=== PATIENT | female | born 1955 | race Caucasian/White ===

== ENCOUNTER 2018-07-24 18:01 | Inpatient (IN) | payer BC ==
[~2018-07-24] VITALS: Ht 154.9 cm; Wt 67.1 kg
[~2018-07-24 18:01] MED LIST: BORT3.5V IV; CYCL50TA PO; DEXA4TAB2 PO; LEVO750T21 PO; METR500T PO
--- NOTE | 2018-07-24 18:01 | NUR ---
PT BIB C/O LUQ ABD PAIN R/T BACK, +NAUSEA, VOMIT X1, STARTED 2HRS AGO. AAOX4, RESPIRATIONS EVEN AND UNLABORED, NAD, PT ON MONITOR, VSS, PENDING MD SEE
[2018-07-24] MEDS ORDERED: ONDANSETRON HCL/PF 4 MG/2 ML VIAL ONE (18:34)
--- NOTE | 2018-07-24 18:35 | NUR ---
ZOFRAN 4MG IVP PER DR LOWE VERBAL ORDER.
[2018-07-24] MEDS ORDERED: MORPHINE SULFATE INJ 4 MG/ML DISP.SYRIN ONE ×2 (18:38→20:04)
[2018-07-24 18:48] LABS: BASOPHILS # (AUTO) 0.1 /CMM (0.0-0.2); BASOPHILS % (AUTO) 0.3 % (0.0-2.0); HEMATOCRIT 38 % (33-45); HEMOGLOBIN 12.3 g/dL (11.5-14.8); LYMPHOCYTES # (AUTO) 3.9 /CMM (0.8-4.8); LYMPHOCYTES % (AUTO) 18.2 % (20.0-44.0); MEAN CORPUSCULAR HGB CONC 32 g/dl (31.0-36.0); MEAN CORPUSCULAR VOLUME 92 fL (82-100); MONOCYTES % (AUTO) 9.5 % (2.0-12.0); NEUTROPHILS # (AUTO) 15.4 /CMM (1.8-8.9); PLATELET COUNT (AUTO) 180 /CMM (150-450); RED BLOOD CELL COUNT(AUTO) 4.13 MIL/uL (4.0-5.2); WHITE BLOOD COUNT (AUTO) 21.4 K/uL (4.3-11.0)
[2018-07-24] MEDS ORDERED: ONDANSETRON HCL/PF 4 MG/2 ML VIAL IVP ONE (19:00)
[2018-07-24] MEDS ORDERED: MORPHINE SULFATE INJ 2 MG/ML DISP.SYRIN IV ONE ×2 (19:00→20:30)
[2018-07-24] MEDS ORDERED: IV NS 0.9% 1,000 ML BAG IV ONE (19:00)
[2018-07-24 19:02] LABS: ALANINE AMINOTRANSFERASE 35 U/L (12-78); ALBUMIN 3.8 g/dL (3.4-5.0); ALKALINE PHOSPHATASE 82 U/L (46-116); ASPARTATE AMINOTRANSFERASE 34 U/L (15-37); BILIRUBIN,DIRECT 0.1 mg/dL (0.0-0.2); BILIRUBIN,TOTAL 0.5 mg/dL (0.2-1.0); CALCIUM, SERUM 9.4 mg/dL (8.5-10.1); CARBON DIOXIDE 21 mmol/L (21-32); CHLORIDE 96 mmol/L (98-107); CREATININE 7.2 mg/dL (0.6-1.3); GLUCOSE 139 mg/dL (74-106); LIPASE 222 U/L (73-393); POTASSIUM 5.6 mmol/L (3.5-5.1); SODIUM SERUM 132 mmol/L (136-145); TOTAL PROTEIN, SERUM 8.4 g/dL (6.4-8.2); UREA NITROGEN, BLOOD 59 mg/dL (7-18)
[2018-07-24 19:41] LABS: APPEARANCE,URINE Clear (CLEAR); BILIRUBIN,URINE Negative (NEGATIVE); BLOOD, URINE Small Ery/uL (NEGATIVE); COLOR,URINE Yellow (YELLOW); KETONES,URINE 15 (NEGATIVE); LEUKOCYTE ESTERASE ,URINE Small (NEGATIVE); NITRITE, URINE Negative (NEGATIVE); PROTEIN,URINE >=300 mg/dl (NEGATIVE); UGLUCOSE 100 MG/DL mg/dL (NEGATIVE); UROBILINOGEN,URINE 0.2 EU/dL (0.2)
[2018-07-24 20:26] LABS: BACTERIA,URINE Few /HPF (None Seen); SQUAMOUS EPITHELIAL CELL,UR Few /HPF (None Seen)
[2018-07-24] MEDS ORDERED: CEFTRIAXONE 1 G in IV D5W 50 ML IV ONE (20:30)
[2018-07-24] MEDS ORDERED: AZITHROMYCIN 500 MG in IV D5W 250 ML IV ONE (20:30)
[2018-07-24] MEDS ORDERED: ACETAMINOPHEN ES 500 MG TABLET ONE (20:30)
[2018-07-24] MEDS ORDERED: AZITHROMYCIN 500 MG VIAL ONE (20:30)
[2018-07-24] MEDS ORDERED: ACETAMINOPHEN ES 500 MG TABLET PO ONE (20:30)
[2018-07-24] MEDS ORDERED: CEFTRIAXONE 1GM BAG (ER ONLY) 50 ML IV ONE (20:30)
[2018-07-24] MEDS ORDERED: SODIUM BICARBONATE SYR 50 MEQ/50 ML DISP.SYRIN IV ONE (21:00)
[2018-07-24] MEDS ORDERED: SODIUM BICARBONATE SYR 50 MEQ/50 ML DISP.SYRIN ONE (21:11)
--- NOTE | 2018-07-24 21:18 | NUR ---
BED ASSIGNMENT 322-1
[2018-07-24] MEDS ORDERED: ALBUTEROL FS 2.5 MG/0.5 ML VIAL.NEB NEB PRN (22:00)
[2018-07-24] MEDS ORDERED: ONDANSETRON HCL/PF 4 MG/2 ML VIAL IVP PRN (22:00)
[2018-07-24] MEDS ORDERED: ACETAMINOPHEN 650 MG/SUPP.RECT RC PRN (22:00)
[2018-07-24] MEDS ORDERED: IPRATROPIUM BROMIDE 14 GM INHALER (or 12.9 GM) IH PRN (22:00)
[2018-07-24] MEDS ORDERED: SEVE800T8 PO (22:03)
[2018-07-24] MEDS ORDERED: CARV3.122 PO (22:03)
[2018-07-24] MEDS ORDERED: OMEP40CA37 PO (22:03)
--- NOTE | 2018-07-24 22:15 | NUR ---
report given to ke mcarthurdry kiln burner nurse for martha
--- NOTE | 2018-07-24 22:40 | NUR ---
RN NOTES ADMITTED A 62 YEARS OLD FEMALE PT FROM ER WITH PRIMARY DIAGNOSIS OF PNA AND UTI UNDER GUSTAVO HAND SHOE CUTTER. PATIENT IS ALERT AND ORIENTED X4, AT ROOM AIR AND TOLERATED WELL. DENIES NAUSEA AND VOMITING AT THIS TIME. PAIN AT TOLERABLE LEVEL 5/10. IV ACCESS ON RIGHT HAND PATENT AND INTACT. SKIN ASSESSMENT DONE, SKIN CLEAR AND INTACT. PT IS AMBULATORY WITH STEADY GAIT. PLAN OF CARE DISCUSSED WITH THE PATIENT AND VERBALIZED UNDERSTANDING. ALL NEEDS ATTENDED. WILL CONTINUE TO MONITOR PATIENT.
[2018-07-24] MEDS ORDERED: VANCOMYCIN 1 GM in IV D5W 250ml IV ONE (23:00)
[2018-07-24] MEDS ORDERED: PIPERACILLIN /TAZOBACTAM 2.25 G VIAL IV ONE (23:12)
[2018-07-24] MEDS ORDERED: VANCOMYCIN 1 GM VIAL ONE (23:15)
[2018-07-25] VITALS: BP 109/68
[2018-07-25] MEDS ORDERED: PIPERACILLIN /TAZOBACTAM 2.25 G in IV D5W 50 ML IV SCH ×2
[2018-07-25] MEDS: HYDROCODONE/APAP 5/325MG 1 EACH TABLET PO PRN ×2 (00:49→22:38)
--- NOTE | 2018-07-25 00:49 | NUR ---
RN NOTES PATIENT COMPLAINS OF LEFT FLANK PAIN 02/18, NORCO 5/325 MG TAB GIVEN PO. WILL CONTINUE TO MONITOR PT.
[2018-07-25 04:00] VITALS: BP 108/62
[2018-07-25] MEDS: ACETAMINOPHEN 325 MG TABLET PO PRN ×3 (05:42→20:11)
--- NOTE | 2018-07-25 05:42 | NUR ---
RN NOTES PATIENT SLEPT ON AND OFF OVERNIGHT. VITAL SIGNS STABLE, AFEBRILE. VERBALIZING NASAL CONGESTION, GUSTAVO TRICHOLOGIST AWARE , INHALER ORDERED. KEPT PAIN AT TOLERABLE LEVEL WITH CURRENT REGIMEN. DENIES NAUSEA AND VOMITING. PLACED PT ON NPO AFTER MIDNIGHT PRIOR TO BE SEEN BY QUANTITATIVE CONSULTANT THIS AM. ALL NEEDS ATTENDED. WILL CONTINUE TO MONITOR PT.
[2018-07-25 06:30] LABS: BASOPHILS % (AUTO) 0.2 % (0.0-2.0); EOSINOPHILS % (AUTO) 0.2 % (0.0-6.0); HEMATOCRIT 31 % (33-45); HEMOGLOBIN 10.3 g/dL (11.5-14.8); LYMPHOCYTES # (AUTO) 2.9 /CMM (0.8-4.8); LYMPHOCYTES % (AUTO) 21.3 % (20.0-44.0); MEAN CORPUSCULAR HGB CONC 33 g/dl (31.0-36.0); MEAN CORPUSCULAR VOLUME 90 fL (82-100); MONOCYTES # (AUTO) 1.4 /CMM (0.1-1.30); MONOCYTES % (AUTO) 10.3 % (2.0-12.0); NEUTROPHILS # (AUTO) 9.3 /CMM (1.8-8.9); PLATELET COUNT (AUTO) 141 /CMM (150-450); RED BLOOD CELL COUNT(AUTO) 3.45 MIL/uL (4.0-5.2); WHITE BLOOD COUNT (AUTO) 13.6 K/uL (4.3-11.0)
[2018-07-25 06:47] LABS: CALCIUM, SERUM 8.7 mg/dL (8.5-10.1); CREATININE 7.2 mg/dL (0.6-1.3); MAGNESIUM 2.3 mg/dL (1.8-2.4); PHOSPHORUS 5.7 mg/dL (2.5-4.9); POTASSIUM 4.7 mmol/L (3.5-5.1)
[2018-07-25 07:00] LABS: THYROID STIMULATING HORMONE 3.319 uIU/mL (0.358-3.74)
--- NOTE | 2018-07-25 07:20 | NUR ---
MS/RN OPENING NOTE THE PATIENT IS RECEIVED IN BED. ALERT AND ORIENTED X4. ABLE TO MAKE NEEDS KNOWN VERBALLY. IN ROOM AIR AND DENIES SOB. RESPIRATION REGULAR AND UNLABORED. COMPLAINS OF LEFT LOWER LATERAL CHEST PAIN 4/10 AND DESCRIBED PAIN SHARP AND "MUSCLE PAIN." THE PATIENT REFUSES PAIN MEDICATION AT THIS TIME BUT AGREED FOR A WARM BLANKET TO PUT CLOSE TO THE AREA TO RELIEVE THE PAIN. WILL CONTINUE TO MONITOR. RIGHT HAND G 20 PATENT AND SALINE LOCKED. BED LOW AND LOCKED. SIDE RAILS UP X2. CALL LIGHT WITHIN REACH. WILL CONTINUE TO MONITOR.
[2018-07-25] MEDS ORDERED: FEE PK DOSING 1 MIN EA MC ONE (07:56)
[2018-07-25 08:00] VITALS: BP 104/55
[2018-07-25] MEDS ORDERED: VANCOMYCIN 500 MG in IV D5W 100 ML IV PRN (08:00)
[2018-07-25] MEDS: SEVELAMER CARBONATE 800 MG TABLET PO SCH ×3 (08:52→17:21)
[2018-07-25] MEDS: PANTOPRAZOLE 40 MG VIAL IV SCH (08:52)
[2018-07-25] MEDS ORDERED: Medication Not On Formulary EA (Omeprazole 40 MG) PO SCH (09:00)
[2018-07-25] MEDS: CARVEDILOL 3.125 MG TABLET PO SCH ×2 (09:00→17:00)
[2018-07-25] MEDS: PIPERACILLIN /TAZOBACTAM 2.25 G in IV D5W 50 ML IV SCH ×2 (09:05→17:20)
--- NOTE | 2018-07-25 09:06 | NUR ---
MS/RN NOTE COREG 3.125 MG DUE AT 0900 NOT ADMINISTERED DUE TO SBP<110.
[2018-07-25] MEDS ORDERED: IPRATROPIUM NEB FS 0.5 MG/2.5 ML AMPUL.NEB NEB PRN (09:30)
[2018-07-25] MEDS ORDERED: SALINE NASAL SPRAY 0.65% 1 BOTTLE BOTTLE NS PRN ×2 (13:00)
--- NOTE | 2018-07-25 13:01 | NUR ---
MS/RN NOTE THE PATIENT COMPLIANT OF NASAL CONGESTION AND DRYNESS. DR SCHWARTZ IS MADE AWARE. RECEIVED SALINE NASAL SPRAY ORDER FROM DR SCHWARTZ. THE ORDER IS READ BACK, VERIFIED. NOTED AND CARRIED OUT.
[2018-07-25] MEDS: MAGNESIUM OXIDE 400 MG TABLET PO SCH (13:06)
[2018-07-25 16:00] VITALS: BP 134/71
--- NOTE | 2018-07-25 17:24 | NUR ---
MS/RN NOTE THE PATIENT REFUSED TO TAKE COREG 3.125 MG DUE AT 1700. PATIENT BLOOD PRESSURE IS 134/71 AND PULSE 80.
--- NOTE | 2018-07-25 18:41 | NUR ---
MS/RN CLOSING NOTE THE PATIENT ALERT AND ORIENTED X4. DENIES PAIN AT THIS TIME. RESPIRATION REGULAR AND UNLABORED. DENIES SOB. PATIENT IN ROOM AIR AND SATURATION AT 97%. RIGHT HAND G 20 PATENT AND SALINE LOCKED. BED LOW AND LOCKED. SIDE RAILS UP X2. CALL LIGHT WITHIN REACH. WILL ENDORSE TO BILINGUAL SPANISH INBOUND SALES.
--- NOTE | 2018-07-25 19:12 | NUR ---
Met with patient,she is alert and pleasant.She lives locally with her spouse. She is ambulatory and independent with adl's. She is on hemodialysis 2x/week [facility] [place] [phone] 2x/week at 7:45am.She is also on kidney transplant list at [facility]. She plan to return home once discharge. Addendum: 07/25/18 at 2 by JANNET MOTLEY RN Amended: Links added.
[2018-07-25 20:00] VITALS: BP 141/71
[2018-07-25] MEDS: CEFEPIME 1 GM in IV D5W 50 ML IV SCH (20:22)
[2018-07-25] MEDS: AZITHROMYCIN 250 MG TABLET PO SCH (20:33)
--- NOTE | 2018-07-25 20:43 | NUR ---
URINE FOR THE ORDERED TEST COLLECTED AND PLACED IN THE REFRIGERATOR,AZITHROMYCIN DOSE PO GIVEN AND MAXIPINE IV INFUSED INITIAL DOSE,
[2018-07-26] MEDS: HYDROCODONE/APAP 5/325MG 1 EACH TABLET PO PRN ×2 (01:24→06:03)
--- NOTE | 2018-07-26 05:15 | NUR ---
PATIENT IS COMPLAINING OF PAIN TO THE LEFT UPPER BACK WHEN LYING DOWN BUT NOT WHEN SITTING OR STANDING.NOTED BLOOD TINGE SPUTUN WHEN COUGHING, DR SANDOVAL NEEDS TO BE NOTIFIED. Addendum: 07/26/18 at 0517 by PETE FLYNN RN Amended: Links added.
[2018-07-26 05:18] VITALS: BP 142/76
--- NOTE | 2018-07-26 05:23 | NUR ---
PATIENT NOTED TO BE COUGHING PRODUCTIVELY AND NOTED BLOOD TINGE SPUTUM. WITH COMPLAINTS OF PAIN TO THE LEFT UPPER BACK WHEN LYING DOWN AND NOT WHEN SITTING OR STANDING . Addendum: 07/26/18 at 0525 by PETE FLYNN RN Amended: Links added.
--- NOTE | 2018-07-26 05:47 | NUR ---
dR Ford CALLED BNACK AND WITH ORDERS AND CARRIED OUT
--- NOTE | 2018-07-26 06:02 | NUR ---
RN NOTES: ASSIGNED RN NOTIFIED MD REGARDING PATIENT'S COMPLAIN, MD CALLED BACK WITH THE FOLLOWING ORDERS, RESPIRATORY CULTURES, AFB SPUTUM R/O TB, INFORMED RN PETE TO CALL INFECTION CONTROL PER PROTOCOL EXT [phone], ROBITUSSIN DM 5ML Q6HRS PRN FOR COUGH
[2018-07-26] MEDS: GUAIFENESIN/D-METHORPHAN HB 5 ML UDC PO PRN ×2 (06:54→20:40)
--- NOTE | 2018-07-26 07:00 | NUR ---
PATIENT WITH ORDERS SPUTUM AFB FOR COLLECTION TO R/O TB, INFECTION DISEASE CONTROL WILL BE NOTIFIED,NOT IN YET, WILL NOTIFY WHEN OFFICE OPENS, RT INFORMED THAT THE PATIENT HAS PLEURITIC PAIN AND NEEDS A BREATHING TREATMENT , WILL COME TO GIVE BREATHING TREATMENT
--- NOTE | 2018-07-26 07:45 | NUR ---
MS RN NOTES PATIENT RECEIVED RESTING INSIDE ROOM. AWAKE, ALERT AND ORIENTED X 4, VERBALLY RESPONSIVE AND RESPONDS TO VERBAL AND TACTILE STIMULI. BREATHING EVEN AND UNLABORED. DENIES ANY PAIN OR DISCOMFORT. NO CHANGES IN LOC NOTED. PATIENT CALM AND RELAXED. RECEIVED ENDORSEMENT FROM PREVIOUS SHIFT THAT PATIENT WITH EPISODE OF HAVING BLOOD-TINGED SPUTUM. NO SPECIMEN COLLECTED YET AT THIS TIME, WILL COLLECT AND SEND TO LAB FOR AFB. PATIENT MADE AWARE AND VERBALIZED UNDERSTANDING. TO PLACE PATIENT ON ISOLATION PRECAUTION FOR SAFETY. PATIENT MADE AWARE AND VERBALIZED UNDERSTANDING BUT REFUSES TO WEAR MASK DURING TRANSFER, VERBALIZES THAT SHE IS UNCOMFORTABLE AND DOES NOT WANT TO WEAR MASK. RISKS AND BENEFITS EXPLAINED BUT TO NO AVAIL, PATIENT STRONGLY REFUSED TO WEAR MASK. WILL INITIATE ISOLATION PRECAUTION. PLACED CALL TO INFECTION CONTROL AND LEFT MESSAGE, AWAITING FOR CALL BACK FOR CONFIRMATION. WILL CONTINUE TO MONITOR
[2018-07-26 07:47] LABS: BASOPHILS % (AUTO) 0.2 % (0.0-2.0); EOSINOPHILS % (AUTO) 1.6 % (0.0-6.0); HEMATOCRIT 30 % (33-45); HEMOGLOBIN 10.2 g/dL (11.5-14.8); LYMPHOCYTES # (AUTO) 1.3 /CMM (0.8-4.8); LYMPHOCYTES % (AUTO) 15.1 % (20.0-44.0); MEAN CORPUSCULAR HGB CONC 34 g/dl (31.0-36.0); MEAN CORPUSCULAR VOLUME 90 fL (82-100); MONOCYTES # (AUTO) 1.1 /CMM (0.1-1.30); NEUTROPHILS # (AUTO) 6.2 /CMM (1.8-8.9); NEUTROPHILS % (AUTO) 71.1 % (43.0-81.0); PLATELET COUNT (AUTO) 147 /CMM (150-450); RED BLOOD CELL COUNT(AUTO) 3.31 MIL/uL (4.0-5.2); WHITE BLOOD COUNT (AUTO) 8.8 K/uL (4.3-11.0)
[2018-07-26 08:00] VITALS: BP 116/60
[2018-07-26 08:01] LABS: CALCIUM, SERUM 8.8 mg/dL (8.5-10.1); MAGNESIUM 2.4 mg/dL (1.8-2.4); PHOSPHORUS 6.6 mg/dL (2.5-4.9); POTASSIUM 4.4 mmol/L (3.5-5.1)
[2018-07-26 08:02] LABS: CREATININE 7.8 mg/dL (0.6-1.3)
[2018-07-26 08:12] LABS: IRON, SERUM 71 ug/dl (50-175); TOTAL IRON BINDING CAPACITY 169 ug/dl (250-450)
[2018-07-26] MEDS: PANTOPRAZOLE 40 MG VIAL IV SCH (08:35)
[2018-07-26] MEDS: MAGNESIUM OXIDE 400 MG TABLET PO SCH (08:35)
[2018-07-26] MEDS: SEVELAMER CARBONATE 800 MG TABLET PO SCH ×3 (08:35→17:49)
[2018-07-26] MEDS: CARVEDILOL 3.125 MG TABLET PO SCH ×2 (09:00→17:00)
[2018-07-26 09:13] LABS: FERRITIN 2387 ng/mL (8-388)
[2018-07-26] MEDS ORDERED: TRAMADOL HCL 50 MG TABLET PO PRN ×2 (14:30→21:00)
[2018-07-26 16:00] VITALS: BP 120/66
--- NOTE | 2018-07-26 17:30 | NUR ---
MS RN NOTES PATIENT S/P HD. 0 OUT PER PATIENT REQUEST, VERBALIZED THAT SHE ONLY WANTS A CLEANUP. PATIENT TOLERATED HD WELL. WILL CONTINUE TO MONITOR
--- NOTE | 2018-07-26 18:15 | NUR ---
MS RN NOTES PATIENT RESTING INSIDE ROOM. AWAKE, ALERT AND ORIENTED X 4, VERBALLY RESPONSIVE AND RESPONDS TO VERBAL AND TACTILE STIMULI. BREATHING EVEN AND UNLABORED. NO SOB OR ACUTE DISTRESS. DENIES ANY PAIN OR DISCOMFORT. PATIENT AFEBRILE, SKIN DRY AND WARM TO TOUCH. MAINTAINED ISOLATION PRECAUTIONS. WILL ENDORSE TO INCOMING SHIFT FOR ELLE. ALL NURSING NEEDS ATTENDED AND MET. PATIENT KEPT CLEAN, DRY AND COMFORTABLE. CALL LIGHT WITHIN EASY REACH
--- NOTE | 2018-07-26 19:38 | NUR ---
PATIENT RECIEVED IN THE ROOM ALERT AND ORIENTED, ON AIRBORNE ISOLATION THE PATIENT WAS ORDERED AFB X 3, 1 COLLECTED AND 2 MORE FOR COLLECTION
[2018-07-26 20:00] VITALS: BP 120/58
[2018-07-26] MEDS: CEFEPIME 1 GM in IV D5W 50 ML IV SCH (20:41)
[2018-07-26] MEDS: AZITHROMYCIN 250 MG TABLET PO SCH (20:50)
--- NOTE | 2018-07-27 06:37 | NUR ---
sputum x1 for afb collected as x1. sputum culture result pending result. patient is still on airborne precaution till the 3 afb result is in. infectious disease department is aware,
[2018-07-27 07:12] LABS: BASOPHILS % (AUTO) 0.3 % (0.0-2.0); EOSINOPHILS % (AUTO) 1.4 % (0.0-6.0); HEMATOCRIT 32 % (33-45); HEMOGLOBIN 10.6 g/dL (11.5-14.8); LYMPHOCYTES # (AUTO) 2.8 /CMM (0.8-4.8); LYMPHOCYTES % (AUTO) 35.4 % (20.0-44.0); MEAN CORPUSCULAR HGB CONC 33 g/dl (31.0-36.0); MEAN CORPUSCULAR VOLUME 89 fL (82-100); MONOCYTES # (AUTO) 1.1 /CMM (0.1-1.30); MONOCYTES % (AUTO) 13.5 % (2.0-12.0); NEUTROPHILS # (AUTO) 3.9 /CMM (1.8-8.9); NEUTROPHILS % (AUTO) 49.4 % (43.0-81.0); PLATELET COUNT (AUTO) 172 /CMM (150-450); RED BLOOD CELL COUNT(AUTO) 3.55 MIL/uL (4.0-5.2)
--- NOTE | 2018-07-27 07:29 | NUR ---
MS RN NOTES PATIENT RECEIVED RESTING INSIDE ROOM. AWAKE, ALERT AND ORIENTED X 4, VERBALLY RESPONSIVE AND RESPONDS TO VERBAL AND TACTILE STIMULI. BREATHING EVEN AND UNLABORED. DENIES ANY PAIN OR DISCOMFORT. NO CHANGES IN LOC NOTED. PATIENT CALM AND RELAXED. MAINTAINED ISOLATION PRECAUTIONS. WILL CONTINUE TO MONITOR. BED LOCKED AND IN LOW POSITION. BILATERAL UPPER SIDE RAILS UP AND LOCKED. CALL LIGHT WITHIN EASY REACH
[2018-07-27 07:36] LABS: CREATININE 6.1 mg/dL (0.6-1.3); MAGNESIUM 2.4 mg/dL (1.8-2.4); PHOSPHORUS 5.4 mg/dL (2.5-4.9); POTASSIUM 4.1 mmol/L (3.5-5.1)
[2018-07-27 08:00] VITALS: BP 135/69
[2018-07-27] MEDS: CARVEDILOL 3.125 MG TABLET PO SCH ×2 (08:32→17:11)
[2018-07-27] MEDS: SEVELAMER CARBONATE 800 MG TABLET PO SCH ×3 (08:32→17:11)
[2018-07-27] MEDS: PANTOPRAZOLE 40 MG VIAL IV SCH (08:32)
[2018-07-27] MEDS: MAGNESIUM OXIDE 400 MG TABLET PO SCH (08:32)
[2018-07-27 11:23] VITALS: BP 135/69
[2018-07-27 16:00] VITALS: BP 143/72
[2018-07-27] MEDS ORDERED: LEVO500T75 PO (17:03)
[2018-07-27 17:11] VITALS: BP 143/72
[2018-07-27] MEDS ORDERED: LEVOFLOXACIN (250MG) 250 MG TABLET PO SCH (18:00)
--- NOTE | 2018-07-27 18:00 | NUR ---
MS RN NOTES PATIENT SEEN AND EXAMINED BY ID AND DR. SCHWARTZ AND PER BOTH DISCIPLINES, PATIENT SHOULD NOT BE ON ISOLATION PRECAUTIONS NOR SHOULD HAVE AFB. NO EPISODE OF BLOOD IN SPUTUM NOTED DURING THIS SHIFT AND MD AWARE. PATIENT AFEBRILE, DENIES NIGHT SWEATS, DENIES FATIGUE. AFB DISCONTINUED BY MD. ORDER NOTED AND CARRIED OUT. PATIENT WITH ORDER FROM DR. SCHWARTZ TO DISCHARGE HOME. PATIENT MADE AWARE AND VERBALIZED UNDERSTANDING
--- NOTE | 2018-07-27 18:34 | NUR ---
MS RN NOTES PATIENT FOR DISCHARGE HOME TODAY. DISCHARGE INSTRUCTIONS AND EDUCATION GIVEN AND PATIENT VERBALIZED UNDERSTANDING. IV REMOVED WITH MINIMAL BLEEDING NOTED. ALL BELONGINGS COMPLETE ON DISCHARGE, NO REPORT OF MISSING INVENTORY. WRITTEN PRESCRIPTION FOR LEVAQUIN GIVEN TO PATIENT. PATIENT LEFT UNIT AT 1834 IN STABLE CONDITION. BREATHING EVEN AND UNLABORED. NO SOB OR ACUTE DISTRESS. NO SKIN BREAKDOWN NOTED ON DISCHARGE. PATIENT LEFT HOSPITAL PRE[facility]ES VIA PRIVATE CAR WITH . MD AWARE OF DISCHARGE.
== END 2018-07-27 18:30 | disposition home or self-care (01) | DRG 871 ==
LOC: ER 18:05 → TELE 21:51 → MED 07-25 09:31
PROVIDERS: ADMIT Registered Nurse; ATTEND Internal Medicine
PROC: 5A1D70Z Performance of Urinary Filtration, Intermittent, Less than 6 Hours Per Day (ICD-10-PCS; principal; 2018-07-26)
DX: A41.9 Sepsis, unspecified organism (principal); N18.6 End stage renal disease; J18.1 Lobar pneumonia, unspecified organism; J15.9 Unspecified bacterial pneumonia; E87.1 Hypo-osmolality and hyponatremia; N39.0 Urinary tract infection, site not specified; D68.59 Other primary thrombophilia; E46 Unspecified protein-calorie malnutrition; Z94.81 Bone marrow transplant status; E85.9 Amyloidosis, unspecified; Z94.84 Stem cells transplant status; I12.0 Hypertensive chronic kidney disease with stage 5 chronic kidney disease or end stage renal disease; B96.89 Other specified bacterial agents as the cause of diseases classified elsewhere; E87.5 Hyperkalemia; I10 Essential (primary) hypertension; K57.30 Diverticulosis of large intestine without perforation or abscess without bleeding; Z85.3 Personal history of malignant neoplasm of breast; E66.9 Obesity, unspecified; Z68.28 Body mass index [BMI] 28.0-28.9, adult; N20.0 Calculus of kidney; Z90.11 Acquired absence of right breast and nipple; Z90.49 Acquired absence of other specified parts of digestive tract; Z99.2 Dependence on renal dialysis; E78.5 Hyperlipidemia, unspecified; D64.9 Anemia, unspecified
CPT/HCPCS: 36415; 71045-TC; 80048-TC; 80061-TC; 80076-TC; 80202-TC; 81000-TC; 82728-TC; 83540-TC; 83605-TC; 83690-TC; 83735-TC; 84100-TC; 84443-TC; 84484-TC; 85025-TC; 87040-TC; 87070-TC; 87081-TC; 87086-TC; 87400; 90935-TC; 93307-TC; A4606; C9113; G0378; J0456; J0692; J0696; J2270; J2405; J2543; J3370; J3490; J7030; J7050; J7060; Z7610

== ENCOUNTER 2018-08-25 17:33 | Inpatient (IN) | payer BC ==
[~2018-08-25] VITALS: Ht 152.4 cm; Wt 64.0 kg
[~2018-08-25 17:33] MED LIST changes: -BORT3.5V IV; +CARV3.122 PO; -CYCL50TA PO; -DEXA4TAB2 PO; +LEVO500T75 PO; -LEVO750T21 PO; -METR500T PO; +OMEP40CA37 PO; +SEVE800T8 PO
--- NOTE | 2018-08-25 18:04 | NUR ---
C/O DIARRHEA x 3 DAYS [id number] x 10 TODAY, WATERY, +N/V x 3, FEVER LAST NIGHT, 100.1, TRAVELLED TO [place] LAST JUNE. HAS DIALYSIS, SHUNT ON LEFT UPPER ARM. PT IS AOX4, AMB, VSS, RR EVEN AND UNLABORED. SKIN INTACT, NO ACUTE DISTRESS NOTED. AT BEDSIDE. READY FOR EVAL.
--- NOTE | 2018-08-25 18:24 | NUR ---
XRAY AT BEDSIDE
--- NOTE | 2018-08-25 18:29 | NUR ---
SMOKING PIPE MOUNTER AT BEDSIDE
[2018-08-25] MEDS ORDERED: IV NS 0.9% 500 ML BAG IV ONE (18:30)
[2018-08-25 18:47] LABS: BASOPHILS % (AUTO) 0.2 % (0.0-2.0); HEMATOCRIT 32 % (33-45); HEMOGLOBIN 10.4 g/dL (11.5-14.8); LYMPHOCYTES % (AUTO) 4.8 % (20.0-44.0); MEAN CORPUSCULAR HGB CONC 33 g/dl (31.0-36.0); MEAN CORPUSCULAR VOLUME 89 fL (82-100); MONOCYTES % (AUTO) 9.7 % (2.0-12.0); NEUTROPHILS # (AUTO) 17.2 /CMM (1.8-8.9); NEUTROPHILS % (AUTO) 85.3 % (43.0-81.0); PLATELET COUNT (AUTO) 196 /CMM (150-450); RED BLOOD CELL COUNT(AUTO) 3.54 MIL/uL (4.0-5.2); WHITE BLOOD COUNT (AUTO) 20.1 K/uL (4.3-11.0)
[2018-08-25 18:58] LABS: ALBUMIN 3.5 g/dL (3.4-5.0); BILIRUBIN,DIRECT 0.1 mg/dL (0.0-0.2); BILIRUBIN,TOTAL 0.5 mg/dL (0.2-1.0); CALCIUM, SERUM 8.6 mg/dL (8.5-10.1); TOTAL PROTEIN, SERUM 7.8 g/dL (6.4-8.2)
[2018-08-25 19:00] LABS: CREATININE 8.3 mg/dL (0.6-1.3)
--- NOTE | 2018-08-25 19:18 | NUR ---
PT TAKEN TO CT VIA MAGDIEL
--- NOTE | 2018-08-25 19:28 | NUR ---
PT RETURNED FROM CT.
--- NOTE | 2018-08-25 19:49 | NUR ---
ATTEMPTED TO COLLECT URINE/STOOL SAMPLES, PT UNABLE TO PROVIDE. CHANNEL DEVELOPMENT DIRECTOR AWARE.
[2018-08-25 19:50] LABS: BAND % (MANUAL) 1 % (0.0-5.0); LYMPHOCYTES % (MANUAL) 4 % (16-48); MONOCYTES % (MANUAL) 4 % (0-11.0); NEUTROPHILS % (MANUAL) 91 (42-76)
--- NOTE | 2018-08-25 20:12 | NUR ---
Pt is assigned to med surg/iso rm#: [id number], DX: Colitis / Rule out C-Diff, and accepting MD: Dr Ribera
--- NOTE | 2018-08-25 20:14 | NUR ---
URINE/STOOL COLLECTED, SENT TO LAB
[2018-08-25 20:24] LABS: APPEARANCE,URINE Clear (CLEAR); BILIRUBIN,URINE Negative (NEGATIVE); BLOOD, URINE Moderate Ery/uL (NEGATIVE); COLOR,URINE Yellow (YELLOW); KETONES,URINE Trace (NEGATIVE); LEUKOCYTE ESTERASE ,URINE Negative (NEGATIVE); NITRITE, URINE Negative (NEGATIVE); PROTEIN,URINE >=300 mg/dl (NEGATIVE); UGLUCOSE Negative (NEGATIVE); UROBILINOGEN,URINE 0.2 EU/dL (0.2)
[2018-08-25] MEDS ORDERED: MAGNESIUM HYDROXIDE 30 ML UDC PO PRN (20:30)
[2018-08-25] MEDS ORDERED: HYDROCODONE/APAP 5/325MG 1 EACH TABLET PO PRN (20:30)
[2018-08-25] MEDS ORDERED: MAG HYDROX/AL HYDROX/SIMETH 30 ML UDC PO PRN (20:30)
[2018-08-25] MEDS ORDERED: ONDANSETRON HCL/PF 4 MG/2 ML VIAL ONE (20:38)
[2018-08-25] MEDS: ONDANSETRON HCL/PF 4 MG/2 ML VIAL IVP PRN (20:42)
[2018-08-25 20:50] VITALS: BP 132/67
--- NOTE | 2018-08-25 20:50 | NUR ---
RECEIVED REPORT FROM ER NURSE VASILIY. PATIENT ARRIVED ON UNIT AND RECEIVED IN STABLE CONDITION. AT BEDSIDE. PATIENT STILL NOTED WITH DIARRHEA. CONTACT ISOLATION IN PLACE. PRN TYLENOL 650MG FOR C/O ABDOMINAL PAIN. NO FURTHER EPISODE OF NV NOTED. PERIPHERAL LINE INTACT AND PATENT. ENCOURAGE USE OF CALL LIGHT FOR ASSISTANCE AND VERBALIZED GOOD UNDERSTANDING. WILL CONTINUE TO MONITOR.
--- NOTE | 2018-08-25 20:51 | NUR ---
REPORT GIVEN TO LUCIE PHIPPS FOR 329-T ISOLATION
--- NOTE | 2018-08-25 20:56 | NUR ---
PT TRANSFERRED TO FLOOR
[2018-08-25 21:11] LABS: BACTERIA,URINE Few /HPF (None Seen); SQUAMOUS EPITHELIAL CELL,UR Few /HPF (None Seen); WBC,URINE 0-2 /HPF (0-3)
[2018-08-25] MEDS: IV NS 0.9% 1,000 ML IV PRN (21:24)
[2018-08-25] MEDS: ACETAMINOPHEN 325 MG TABLET PO PRN (21:24)
[2018-08-26] MEDS: VANCOMYCIN HCL 125 MG/2.5 ML ORAL.SUSP PO SCH ×5 (00:07→23:55)
[2018-08-26] MEDS: ONDANSETRON HCL/PF 4 MG/2 ML VIAL IVP PRN (05:41)
--- NOTE | 2018-08-26 06:24 | NUR ---
MS RN NOTES PATIENT ASLEEP IN BED WITH NO DISTRESS NOTED. CALL LIGHT WITHIN REACH. PERIPHERAL LINE INTACT AND PATENT. ALL DUE MEDS GIVEN ORDERED WITH NO ASE NOTED. NO FURTHER C/O PAIN OR DISCOMFORT. CONTACT ISOLATION OBSERVED AND MAINTAINED AT ALL TIMES. ALL BELONGINGS KEPT NEAR BEDSIDE. BED IN LOW LOCK SETTING. WILL ENDORSE TO ONCOMING SHIFT.
[2018-08-26 07:21] LABS: BASOPHILS % (AUTO) 0.1 % (0.0-2.0); HEMATOCRIT 30 % (33-45); HEMOGLOBIN 10.2 g/dL (11.5-14.8); LYMPHOCYTES # (AUTO) 1.2 /CMM (0.8-4.8); MEAN CORPUSCULAR HGB CONC 34 g/dl (31.0-36.0); MEAN CORPUSCULAR VOLUME 88 fL (82-100); MONOCYTES # (AUTO) 1.9 /CMM (0.1-1.30); MONOCYTES % (AUTO) 9.7 % (2.0-12.0); NEUTROPHILS # (AUTO) 16.6 /CMM (1.8-8.9); NEUTROPHILS % (AUTO) 84.2 % (43.0-81.0); PLATELET COUNT (AUTO) 177 /CMM (150-450); RED BLOOD CELL COUNT(AUTO) 3.42 MIL/uL (4.0-5.2); WHITE BLOOD COUNT (AUTO) 19.7 K/uL (4.3-11.0)
--- NOTE | 2018-08-26 07:23 | NUR ---
MS RN OPENING NOTE RECEIVED PATIENT IN BED. SLEEPING, EASILY AROUSED WITH VERBAL STIMULI. ORIENTED X4. ON ROOM AIR, TOLERATING WELL. IN NO APPARENT DISTRESS OR DISCOMFORT AT THIS TIME. RESPIRATIONS EVEN AND UNLABORED. DENIES PAIN AND SOB. PATIENT IS ABLE TO COMMUNICATE NEEDS. ABLE TO AMBULATE INDEPENDENTLY. ISOLATION PRECAUTIONS OBSERVED AT THE DOOR. RIGHT HAND 20G IVC WITH FLUIDS RUNNING AT 75ML/HR. LEFT UPPER ARM SHUNT, BRUIT PRESENT. PATIENT KEPT CLEAN AND COMFORTABLE. ALL NEEDS ATTENDED, SAFETY MEASURES IN PLACE, BED IN LOW LOCKED POSITION, SIDE RAILS UP X2, CALL LIGHT WITHIN EASY REACH., WILL CONTINUE TO MONITOR.
[2018-08-26 07:27] LABS: CALCIUM, SERUM 8.4 mg/dL (8.5-10.1); PHOSPHORUS 5.5 mg/dL (2.5-4.9); POTASSIUM 4.1 mmol/L (3.5-5.1)
[2018-08-26 07:29] LABS: CREATININE 8.4 mg/dL (0.6-1.3)
[2018-08-26 07:39] LABS: THYROID STIMULATING HORMONE 1.967 uIU/mL (0.358-3.74)
[2018-08-26 07:41] LABS: BAND % (MANUAL) 1 % (0.0-5.0); LYMPHOCYTES % (MANUAL) 5 % (16-48); MONOCYTES % (MANUAL) 9 % (0-11.0); NEUTROPHILS % (MANUAL) 85 (42-76)
[2018-08-26 08:00] VITALS: BP 118/53
[2018-08-26] MEDS: SEVELAMER CARBONATE 0.8 GM POWD.PACK PO SCH ×3 (08:43→17:05)
[2018-08-26] MEDS: ACETAMINOPHEN 325 MG TABLET PO PRN ×2 (08:47→17:12)
--- NOTE | 2018-08-26 09:00 | NUR ---
PATIENT WITH FEVER OF 100.0. OFFERED ICE PACKS, PATIENT REFUSED. DECREASED ROOM TEMPERATURE AND ADMINISTERED TYLENOL 650MG PRN AT THIS TIME. WILL CONTINUE TO MONITOR.
--- NOTE | 2018-08-26 10:00 | NUR ---
PATIENT IS AFEBRILE AT THIS TIME. FEVER DECREASED TO 98.2. WILL CONTINUE TO MONITOR.
[2018-08-26 16:00] VITALS: BP 147/66
--- NOTE | 2018-08-26 18:25 | NUR ---
MS RN CLOSING NOTE PATIENT IN BED. ALERT ORIENTED X4. ON ROOM AIR, TOLERATING WELL. IN NO APPARENT DISTRESS OR DISCOMFORT AT THIS TIME. RESPIRATIONS EVEN AND UNLABORED. DENIES PAIN AND SOB. PATIENT IS ABLE TO COMMUNICATE NEEDS. ABLE TO AMBULATE INDEPENDENTLY. ISOLATION PRECAUTIONS OBSERVED AT THE DOOR. RIGHT HAND 20G IVC WITH FLUIDS RUNNING AT 75ML/HR. LEFT UPPER ARM SHUNT, BRUIT PRESENT. PATIENT CURRENTLY BEING DIALYZED. KEPT CLEAN AND COMFORTABLE. ALL NEEDS ATTENDED, SAFETY MEASURES IN PLACE, BED IN LOW LOCKED POSITION, SIDE RAILS UP X2, CALL LIGHT WITHIN EASY REACH. WILL ENDORSE TO PM NURSE FOR ELLE.
--- NOTE | 2018-08-26 18:45 | NUR ---
Patient is alert and pleasant.She lives locally with her spouse. She is ambulatory and independent with adl's. She is on hemodialysis 2x/week at [facility] [phone] 2x/week at 7:45am.She is also on kidney transplant list at [facility]. She plan to return home once discharge. Addendum: 08/26/18 at 1845 by JANNET MOTLEY RN Amended: Links added.
--- NOTE | 2018-08-26 19:08 | NUR ---
MS/RN OPENING NOTES RECEIVED PATIENT HAVING DIALYSIS AND AM RN GAVE REPORT,PATIETN ON CDIFF CONTACT ISOLATION, ALERT, ORIENTED, A, O X4, BRP AND ASSIST TO BATHROOM, ON BED JURADO, BEING MONITORED FOR STOOL, FEVER AND ANY CHANGES. WILL CONTINUE TO MONITOR, CALL LIGHTS WITHIN REACH, BED LOCKED WILL MONITOR.CALL LIGHTS WITHIN REACH, BED LOCKED.
[2018-08-26 20:00] VITALS: BP 142/84
--- NOTE | 2018-08-26 20:00 | NUR ---
MS/RN NOTES PATIENT S/P DIALYSIS HAD 500ML FLUID OUT REPORTED BY DIALYSIS NURSE, DAVYN REQUESTED FOR DINNER TRAY WARMED AND HAVING MODERATE APPETITE. DENIES PAIN BUT FEELING COLD ASKED FOR WARM BLANKET.
--- NOTE | 2018-08-27 00:30 | NUR ---
MS/RN NOTES PATIENT REPORTED ABLE TO GO TO BATHROOM WITH SUPERVISION AND REPORTED HAD BM FIVE TIMES DURING THE SHIFT. IV HYDRATION TO BE PROVIDED PER PROTOCOL, DENIES PAIN AND NO N/V, OBSERVE GRIMACE.WILL MONITOR.
[2018-08-27] MEDS: IV NS 0.9% 1,000 ML IV PRN (00:32)
[2018-08-27] MEDS: VANCOMYCIN HCL 125 MG/2.5 ML ORAL.SUSP PO SCH ×4 (05:09→23:10)
--- NOTE | 2018-08-27 06:24 | NUR ---
329-1 MS/RN NOTES PATIENT SLEPT INTERMITENTLY, ALERT, ORIENTED X3, ABLE TO VEBALIXE NEEDS, SELF CARE AND SUPERVISED FOR SAFETY BRP, DIARRHEA REPORTE WATERY STOOL, HYDRATION PROVIDED, ATTENDED NEEDS, CALL LIGHTS WITHIN REACH, BED LOCKED. WILL ENDORSE TO AM RN FOR ELLE.
[2018-08-27 07:45] LABS: BASOPHILS % (AUTO) 0.1 % (0.0-2.0); EOSINOPHILS % (AUTO) 0.1 % (0.0-6.0); HEMATOCRIT 26 % (33-45); LYMPHOCYTES # (AUTO) 1.5 /CMM (0.8-4.8); LYMPHOCYTES % (AUTO) 9.4 % (20.0-44.0); MEAN CORPUSCULAR HGB CONC 34 g/dl (31.0-36.0); MEAN CORPUSCULAR VOLUME 88 fL (82-100); MONOCYTES # (AUTO) 1.3 /CMM (0.1-1.30); MONOCYTES % (AUTO) 8.4 % (2.0-12.0); NEUTROPHILS # (AUTO) 12.7 /CMM (1.8-8.9); PLATELET COUNT (AUTO) 153 /CMM (150-450); RED BLOOD CELL COUNT(AUTO) 2.99 MIL/uL (4.0-5.2); WHITE BLOOD COUNT (AUTO) 15.5 K/uL (4.3-11.0)
[2018-08-27 07:59] LABS: CALCIUM, SERUM 7.6 mg/dL (8.5-10.1); CREATININE 5.4 mg/dL (0.6-1.3); MAGNESIUM 1.9 mg/dL (1.8-2.4); PHOSPHORUS 3.3 mg/dL (2.5-4.9); POTASSIUM 3.3 mmol/L (3.5-5.1)
[2018-08-27 08:00] VITALS: BP 118/56
--- NOTE | 2018-08-27 08:06 | NUR ---
MS RN OPENING NOTE RECEIVED PATIENT IN BED. SLEEPING, EASILY AROUSED WITH VERBAL STIMULI. ORIENTED X4. ON ROOM AIR, TOLERATING WELL. IN NO APPARENT DISTRESS OR DISCOMFORT AT THIS TIME. RESPIRATIONS EVEN AND UNLABORED. DENIES PAIN AND SOB. PATIENT IS ABLE TO COMMUNICATE NEEDS. ABLE TO AMBULATE INDEPENDENTLY. ISOLATION PRECAUTIONS OBSERVED AT THE DOOR. RIGHT HAND 20G IVC WITH FLUIDS RUNNING AT 75ML/HR. LEFT UPPER ARM SHUNT, BRUIT PRESENT. PATIENT KEPT CLEAN AND COMFORTABLE. ALL NEEDS ATTENDED, SAFETY MEASURES IN PLACE, BED IN LOW LOCKED POSITION, SIDE RAILS UP X2, CALL LIGHT WITHIN EASY REACH. WILL CONTINUE TO MONITOR.
[2018-08-27] MEDS: SEVELAMER CARBONATE 0.8 GM POWD.PACK PO SCH ×3 (08:56→17:10)
--- NOTE | 2018-08-27 10:30 | NUR ---
PATIENT WITH POTASSIUM LEVEL OF 3.3. PER PHARMACY REQUEST CLARIFIED WITH DR. WORTHINGTON IF HE WOULD LIKE TO REPLACE THE POTASSIUM. PER DR. WORTHINGTON NO REPLACEMENT NEEDED AT THIS TIME, REPORTED BACK TO PHARMACY.
[2018-08-27 16:00] VITALS: BP 116/62
--- NOTE | 2018-08-27 18:20 | NUR ---
MS RN CLOSING NOTE PATIENT IN BED. ALERT ORIENTED X4. ON ROOM AIR, TOLERATING WELL. IN NO APPARENT DISTRESS OR DISCOMFORT AT THIS TIME. RESPIRATIONS EVEN AND UNLABORED. DENIES PAIN AND SOB. AFEBRILE. PATIENT IS ABLE TO COMMUNICATE NEEDS. ABLE TO AMBULATE INDEPENDENTLY. ISOLATION PRECAUTIONS OBSERVED AT THE DOOR. RIGHT HAND 20G IVC WITH FLUIDS RUNNING AT 75ML/HR. LEFT UPPER ARM SHUNT, BRUIT PRESENT. KEPT CLEAN AND COMFORTABLE. ALL NEEDS ATTENDED, SAFETY MEASURES IN PLACE, BED IN LOW LOCKED POSITION, SIDE RAILS UP X2, CALL LIGHT WITHIN EASY REACH. WILL ENDORSE TO PM NURSE FOR ELLE.
--- NOTE | 2018-08-27 19:42 | NUR ---
MS/RN OPENING NOTES RECEIVED PATIENT IN BED, AWAKE, ALERT, ABLE TO VERBALIZE NEEDS, DENIES PAIN BUT APPEARS WEAK , RESPIRATIONS EVEN AND UNLABORED, SKIN . KEPT WARM, OFFERED AND PROVIDED FLUIDS. WILL MONITOR FOR ANY CHANGES/ CALL LIGHTS WITHIN REACH, BED LOCKED WILL MONITOR.
[2018-08-27 20:00] VITALS: BP 121/60
[2018-08-27 20:23] VITALS: BP 121/60
--- NOTE | 2018-08-27 21:17 | NUR ---
MS/RN NOTES PATIENT, ABLE TO VERBALIZE NEEDS, ASSIST AND SUPERVISED FOR SAFETY, OBSERVE STOOL SEMI FORMED , COUGHING OUT SECRETIONS THICK COLORED YELLOWISH GREEN COLOR. TO F/U IN AM .
[2018-08-28] MEDS: VANCOMYCIN HCL 125 MG/2.5 ML ORAL.SUSP PO SCH ×2 (05:23→12:48)
--- NOTE | 2018-08-28 05:30 | NUR ---
ms/rn notes PATIENT AWAKE, EKG ORDER RESULT SINUS RHYTHM., PO VANCO TOTAL 5 ML SYRINGE ADMINISTERED.PATIENT TOLERATED..
--- NOTE | 2018-08-28 06:43 | NUR ---
329-1 MS/RN NOTES PATEITN ABLE TO SLEEP DURING THE NIGHT, VERBALIZED NEEDS, COMPLIANT TO CARE ANS DELF CARE, STILL HAVING MULTIPLE TIMES TO BATHROOM FOR BOWEL MOVEM,ENT BUT REA FORMED. RESPIRATIONS EVEN AND UNLABORED. WILMA LIGHTS WITHIN REACH WILL ENDORSE TO AM RN FOR ELLE.
[2018-08-28 08:00] VITALS: BP 116/62
[2018-08-28] MEDS: SEVELAMER CARBONATE 0.8 GM POWD.PACK PO SCH ×2 (08:00→12:48)
[2018-08-28 08:01] LABS: BASOPHILS % (AUTO) 0.1 % (0.0-2.0); EOSINOPHILS % (AUTO) 0.5 % (0.0-6.0); HEMATOCRIT 28 % (33-45); HEMOGLOBIN 9.3 g/dL (11.5-14.8); LYMPHOCYTES # (AUTO) 2.1 /CMM (0.8-4.8); LYMPHOCYTES % (AUTO) 16.3 % (20.0-44.0); MEAN CORPUSCULAR HGB CONC 34 g/dl (31.0-36.0); MEAN CORPUSCULAR VOLUME 88 fL (82-100); MONOCYTES # (AUTO) 0.8 /CMM (0.1-1.30); MONOCYTES % (AUTO) 6.4 % (2.0-12.0); NEUTROPHILS # (AUTO) 9.8 /CMM (1.8-8.9); NEUTROPHILS % (AUTO) 76.7 % (43.0-81.0); PLATELET COUNT (AUTO) 165 /CMM (150-450); RED BLOOD CELL COUNT(AUTO) 3.13 MIL/uL (4.0-5.2); WHITE BLOOD COUNT (AUTO) 12.8 K/uL (4.3-11.0)
[2018-08-28 08:06] LABS: CALCIUM, SERUM 7.9 mg/dL (8.5-10.1); CREATININE 6.2 mg/dL (0.6-1.3); MAGNESIUM 2.2 mg/dL (1.8-2.4); PHOSPHORUS 3.6 mg/dL (2.5-4.9); POTASSIUM 3.4 mmol/L (3.5-5.1)
--- NOTE | 2018-08-28 11:40 | NUR ---
CRITICAL MICROBIOLOGY RESULTS CALLED IN BY STACEY Connelly FROM THE LAB. + C-DIFF CONFIRMED. DR LEACH. ( ) NOTIFIED IN PERSON ON FLOOR. PER MD CONTINUE ORAL VANCO
--- NOTE | 2018-08-28 15:22 | NUR ---
DISCHARGE ORDER RECEIVED AND ADDRESSED WITH CHARGE NURSE. HD WAS CANCELLED FOR TODAY, NEXT HD IS SATURDAY. PATIENT STATES SHE HAS HAD 7 "[employer]LE [employer]CE" CONSISTENCY BOWEL MOVEMENTS SINCE THE START OF MY SHIFT AND IS NOT COMFORTABLE WITH BEING DISCHARGED TODAY. WILL PAGE AND NOTIFY HIM . CHARGE NURSE ANYI NOTIFIED AND AWARE
--- NOTE | 2018-08-28 15:54 | NUR ---
PER , VANCO ORAL WILL BE CONTINUED FOR THE NEXT 10 DAYS STARTING AT 0000 08/29/18. EXPLAINED TO PATIENT HER LAB RESULTS AND MARKED IMPROVEMENTS AND EDUCATED HER ON THE INFECTION. PATIENT STATES SHE IS OK TO GO HOME THIS EVENING, AWAITING ETA TIME FOR HER SPOUSE TO PICK HER UP. ANYTIME AFTER 530PM PER PATIENT .
--- NOTE | 2018-08-28 17:15 | NUR ---
ALL DISCHARGE INSTRUCTIONS GIVEN AND EXPLAINED TO PATIENT . IV REMOVED ,CATHETER INTACT. RX GIVEN TO PATIENT AND ALL DISCHARGE INSTRUCTIONS EXPLAINED TO PATIENT AND SPOUSE VSHaresh
== END 2018-08-28 17:20 | disposition home or self-care (01) | DRG 871 ==
LOC: ER 17:37 → TELE 20:19 → MED 21:17
PROVIDERS: ATTEND Hospitalist
PROC: 5A1D70Z Performance of Urinary Filtration, Intermittent, Less than 6 Hours Per Day (ICD-10-PCS; principal; 2018-08-26)
DX: A41.9 Sepsis, unspecified organism (principal); I21.A1 Myocardial infarction type 2; N18.6 End stage renal disease; J18.9 Pneumonia, unspecified organism; A04.72 Enterocolitis due to Clostridium difficile, not specified as recurrent; E87.1 Hypo-osmolality and hyponatremia; I12.0 Hypertensive chronic kidney disease with stage 5 chronic kidney disease or end stage renal disease; K51.00 Ulcerative (chronic) pancolitis without complications; K44.9 Diaphragmatic hernia without obstruction or gangrene; Z99.2 Dependence on renal dialysis; Z85.3 Personal history of malignant neoplasm of breast; Z90.10 Acquired absence of unspecified breast and nipple; Z90.49 Acquired absence of other specified parts of digestive tract; K57.30 Diverticulosis of large intestine without perforation or abscess without bleeding; E78.1 Pure hyperglyceridemia; D63.8 Anemia in other chronic diseases classified elsewhere; E86.0 Dehydration; R00.0 Tachycardia, unspecified; M48.07 Spinal stenosis, lumbosacral region; M47.897 Other spondylosis, lumbosacral region
CPT/HCPCS: 36415; 71045-TC; 80048-TC; 80061-TC; 80076-TC; 81000-TC; 83605-TC; 83735-TC; 84100-TC; 84443-TC; 84484-TC; 85025-TC; 85730-TC; 87040-TC; 87045-TC; 87081-TC; 87086-TC; 89055; 90935-TC; A6402; G0378; J2405; J7030; J7040